=== PATIENT | female | born 1995 | race Caucasian/White ===

== ENCOUNTER 2016-11-06 20:25 | Emergency (ER) | payer OTHER ==
[2016-11-06] MEDS ORDERED: KETOROLAC 60 MG/2 ML VIAL ONE (20:28)
[2016-11-06 20:40] VITALS: BP 126/59
--- NOTE | 2016-11-06 21:13 | XRAY Preliminary Report ---
Exam: XR Chest 2 View PA/LAT IMPRESSION: No acute findings are seen. [facility] SITE ID: [id number]
--- NOTE | 2016-11-06 21:15 | XRAY Report ---
EXAM: CHEST RADIOGRAPHY EXAM DATE: 11/06/2016 08:55 PM. CLINICAL HISTORY: Trauma, right rib pain. Fall from ladder approximately 3 feet. Right posterior uppe r rib pain. COMPARISON: None. TECHNIQUE: 2 views. FINDINGS: Lungs/Pleura: No focal opacities evident. No pleural effusion. No pneumothorax. Normal volumes. Mediastinum: Heart and mediastinal contours are unremarkable. Other: No evidence for acute fracture. IMPRESSION: No acute findings are seen. [facility] Referring Provider Line: [phone] SITE ID: [id number]
--- NOTE | 2016-11-06 21:15 | XRAY Preliminary Report ---
Exam: XR Wrist 3 View LT IMPRESSION: No acute findings. [facility] SITE ID: [id number]
--- NOTE | 2016-11-06 21:17 | XRAY Report ---
EXAM: LEFT WRIST RADIOGRAPHY EXAM DATE: 11/06/2016 08:55 PM. CLINICAL HISTORY: Trauma, left wrist pain. COMPARISON: None. TECHNIQUE: 3 views. FINDINGS: Bones: Chronic nonunion avulsion fracture of the ulnar styloid versus unfused ossicle. Suspect chroni c healed left distal radial diaphyseal fracture deformity. No evidence for acute fracture. Joints: Normal. No subluxations. Soft Tissues: Normal. No soft tissue swelling. IMPRESSION: No acute findings. [facility] Referring Provider Line: [phone] SITE ID: [id number]
--- NOTE | 2016-11-06 21:30 | ED Physician Documentation ---
PD HPI Fall - Stated complaint Stated Complaint: FALL/WRIST PN - Chief complaint Chief Complaint: Trauma Ch/Bk - History obtained from History obtained from: Patient, EMS - History of Present Illness Mechanism of injury: Slipped Fall distance: Less than 5ft Where injury occurred: Work Timing - onset: How many hours ago (2) Injury(ies) location: Chest, Left Uppper Extremity Quality of pain: Pain Associated symptoms: No: LOC, AMS, Amnesia, Seizures, Neck pain, Weakness, Paresthesias Symptoms improve with: Ice, Position Worsens with: Movement, Palpation Similar symptoms before: Has not had sx before Recently seen: Not recently seen - Additional information Additional information: Patient is a 21 year old female with no significant past medical history who is presenting to the emergency department for side and wrist pain. 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 Patient eventually lost balance and fell back landing on her side and hitting her wrist. Patient denies any loc , head pain or neck pain. Review of Systems Constitutional: denies: Fever, Chills Eyes: denies: Loss of vision, Photophobia Ears: denies: Ear pain, Drainage/discharge Nose: denies: Epistaxis Throat: denies: Dental pain / toothache Cardiac: denies: Chest pain / pressure Respiratory: denies: Cough, Wheezing GI: denies: Nausea, Vomiting Skin: denies: Abrasion (s), Laceration (s) Musculoskeletal: reports: Back pain, Extremity pain Neurologic: denies: Generalized weakness, Focal weakness, Numbness Immunocompromised: denies: Immunocompromised PD PAST MEDICAL HISTORY - Past Medical History Past Medical History: No - Past Surgical History Past Surgical History: No - Present Medications Home Medications: Ambulatory Orders Medication Instructions Recorded Confirmed No Known Home Medications [No 11/06/16 11/06/16 Known Home Medications] - Allergies Allergies/Adverse Reactions: Allergies Allergy/AdvReac Type Severity Reaction Status Date / Time No Known Drug Allergies Allergy Verified 11/06/16 20:33 - Social History Does the pt smoke?: No Smoking Status: Never smoker Does the pt drink ETOH?: No Does the pt have substance abuse?: No - Immunizations Immunizations are current?: Yes - POLST Patient has POLST: No PD ED PE NORMAL - Vitals Vital signs reviewed: Yes - General General: Alert and oriented X 3, No acute distress - HEENT HEENT: Atraumatic, PERRL - Neck Neck: Supple, no meningeal sign - Cardiac Cardiac: RRR, No murmur - Respiratory Respiratory: No respiratory distress - Abdomen Abdomen: Soft, Non tender, Non distended - Derm Derm: Normal color, Warm and dry - Neuro Neuro: Alert and oriented X 3, No motor deficit, No sensory deficit, Normal speech - Psych Psych: Normal mood, Normal affect PD ED PE EXPANDED - Back Back: Other (tenderness to palpation over right lateral ribs) - Extremities Extremities: Left wrist (tenderness to palpation of left wrist) Results - Vitals Vitals: Vital Signs - 24 hr 11/06/16 20:27 Temperature 36.2 C L Heart Rate 81 Respiratory 16 Rate Blood Pressure 126/59 L O2 Saturation 100 Oxygen O2 Source Room air - Rads (name of study) chest x-ray Radiology: Final report received (no acute fracture or dislocation) wrist x-ray Radiology: Final report received (no acute fracture or dislocation) PD MEDICAL DECISION MAKING - ED course Complexity details: reviewed old records, reviewed results, re-evaluated patient , considered differential, d/w patient ED course: Patient was seen and examined at bedside. patient was then sent for imaging. when patient returned the results were reviewed. there was no acute fracture or dislocation. patient required no further work up and was stable for discharge with outpatient follow up. Departure - Departure Disposition: 01 Home, Self Care Clinical Impression: Contusion of chest wall Condition: Good Instructions: ED Contusion Chest Wall Follow-Up: primary,care provider [Other] - As Needed Comments: Your diagnostics today were within normal limits. You can take motrin or tylenol as needed for pain. You apply ice to the areas that are painful. You should make sure that you continue to take deep breaths. You should return to the emergency department for fevers, chills, shortness of breath, new, worsening or uncontrollable symptoms. Discharge Date/Time: 11/06/16 21:40
== END 2016-11-06 21:40 | disposition home or self-care (01) ==
LOC: ED 20:25
DX: S20.219A Contusion of unspecified front wall of thorax, initial encounter (principal); W01.0XXA Fall on same level from slipping, tripping and stumbling without subsequent striking against object, initial encounter; Y93.89 Activity, other specified; Y99.0 Civilian activity done for income or pay
CPT/HCPCS: 71020; 99283

== ENCOUNTER 2016-11-22 02:09 | Emergency (ER) | payer OTHER ==
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
[2016-11-22 04:04] VITALS: BP 120/60
== END 2016-11-22 04:04 | disposition home or self-care (01) ==
LOC: ED 02:09
DX: Z71.1 Person with feared health complaint in whom no diagnosis is made (principal); W10.8XXA Fall (on) (from) other stairs and steps, initial encounter; Y92.89 Other specified places as the place of occurrence of the external cause; Y99.1 Military activity
CPT/HCPCS: 99283

== ENCOUNTER 2018-08-17 20:29 | Emergency (ER) | payer OTHER ==
[2018-08-17 20:45] VITALS: BP 143/82
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
== END 2018-08-17 21:25 | disposition home or self-care (01) ==
LOC: ED 20:29
DX: S13.4XXA Sprain of ligaments of cervical spine, initial encounter (principal); V43.52XA Car driver injured in collision with other type car in traffic accident, initial encounter; Y92.410 Unspecified street and highway as the place of occurrence of the external cause
CPT/HCPCS: 99282; 99283

== ENCOUNTER 2022-02-19 11:28 | Outpatient (CLI) | payer OTHER ==
--- NOTE | 2022-02-19 13:01 | XRAY Report ---
PROCEDURE: Ankle 3 View RT INDICATIONS: RIGHT ANKLE PAIN TECHNIQUE: 3 views of the ankle were acquired. COMPARISON: Right ankle radiographs 02/03/2022. FINDINGS: Bones: No fractures or dislocations. Ankle mortise is normally aligned. No suspicious bony lesions . Pes planus alignment present. Soft tissues: No tibiotalar joint effusion. Achilles tendon appears normal. IMPRESSION: No acute osseous abnormality. If symptoms persist, follow-up radiographs and/or CT or MR I may be helpful for further evaluation. Reviewed by: Nas Cooley MD on 02/19/2022 1:00 PM [facility] Approved by: Nas Cooley MD on 02/19/2022 1:00 PM [facility] Station ID: [id number]
== END 2022-02-19 11:29 | disposition home or self-care (01) ==
LOC: DI.WOS 11:28
PROVIDERS: ATTEND Orthopaedic Surgery
DX: M25.571 Pain in right ankle and joints of right foot (principal)

== ENCOUNTER 2022-03-26 08:00 | Outpatient (CLI) | payer OTHER ==
--- NOTE | 2022-03-26 14:55 | XRAY Report ---
PROCEDURE: Ankle 3 View RT INDICATIONS: RIGHT ANKLE FRACTURE TECHNIQUE: 3 views of the ankle were acquired. COMPARISON: Right ankle radiographs 02/19/2022 FINDINGS: Bones: No acute fractures or dislocations. Ankle mortise is normally aligned. No suspicious bony l esions. Pes planus alignment is noted. Soft tissues: No suspicious soft tissue calcification. IMPRESSION: 1.Pes planus. 2.No acute or healing osseous fracture identified in the ankle. If symptoms persist or there is crystal nued clinical concern, further evaluation with MRI or CT may be helpful. Reviewed by: Nas Hill MD on 03/26/2022 2:53 PM PST Approved by: Nas Hill MD on 03/26/2022 2:53 PM PST Station ID: [id number]
== END 2022-03-26 23:59 | disposition home or self-care (01) ==
LOC: DI.WOS 08:00
PROVIDERS: ATTEND Orthopaedic Surgery
DX: S82.64XA Nondisplaced fracture of lateral malleolus of right fibula, initial encounter for closed fracture (principal); M21.41 Flat foot [pes planus] (acquired), right foot

== ENCOUNTER 2022-12-24 07:01 | Day surgery (SDC) | payer OTHER ==
[2022-12-24] MEDS ORDERED: LACTATED RINGERS 1,000 ML IV ONE ×2 (07:17→09:23)
[2022-12-24] MEDS ORDERED: MORPHINE 2 MG/ML CARPUJECT IVP PRN (07:27)
[2022-12-24] MEDS ORDERED: fentaNYL 100 MCG/2 ML VIAL IVP PRN (07:27)
[2022-12-24] MEDS ORDERED: NALOXONE 0.4 MG/ML VIAL IVP PRN (07:27)
[2022-12-24] MEDS ORDERED: ONDANSETRON 4 MG/2 ML VIAL IVP PRN (07:27)
[2022-12-24] MEDS ORDERED: ePHEDrine 50 MG/ML VIAL IVP PRN (07:27)
[2022-12-24] MEDS ORDERED: HYDROmorphone 0.5 MG/0.5 ML SYRINGE IVP PRN (07:27)
[2022-12-24] MEDS ORDERED: ATROPINE ABBOJECT 1 MG/10 ML SYRINGE IVP PRN (07:27)
--- NOTE | 2022-12-24 07:27 | ANESTHESIA ---
Pre-Anesthesia VS, & Labs - Diagnosis desires sterilization - Procedure laparoscopic bilateral salphingectomy Height: 5 ft 7 in - NPO >8 hours - Is Patient ?: No - Lab Results Fish Bones: 12/24/22 07:28 Home Medications and Allergies Home Medications: Ambulatory Orders Sertraline HCl 100 mg PO DAILY 12/23/22 buPROPion [Wellbutrin Xl] 150 mg PO DAILY 12/23/22 valACYclovir [Valtrex] 500 mg PO DAILY 12/23/22 Sertraline HCl 100 mg PO DAILY 12/23/22 buPROPion [Wellbutrin Xl] 150 mg PO DAILY 12/23/22 valACYclovir [Valtrex] 500 mg PO DAILY 12/23/22 Allergies/Adverse Reactions: Allergies Allergy/AdvReac Type Severity Reaction Status Date / Time No Known Drug Allergies Allergy Verified 12/24/22 07:37 Anes History & Medical History - Anesthetic History Anesthesia Complications: reports: No previous complications - Medical History Cardiovascular: reports: None Pulmonary: reports: None Gastrointestinal: reports: Other Urinary: reports: None Musculoskeletal: reports: None Endocrine/Autoimmune: reports: None Skin: reports: None Smoking Status: Never smoker Psychosocial: reports: Other (ADHD) History of Cancer?: No Other Past Medical History: chronic hearing loss - Surgical History Orthopedic: reports: Other (CR of wrist) Exam General: Alert, Oriented x3 Dental: WNL, Other (permenant retainer) Mouth Opening: Greater than 4 Fingerbreadths Neck Mobility: Normal Mallampati classification: I Thyromental Distance: greater than 6 cm Respiratory: Lungs clear Cardiovascular: Regular rate Plan Anesthesia Type: General Consent for Procedure(s) Verified and Reviewed: Yes Code Status: Attempt Resuscitation ASA classification: 2-Mild systemic disease Is this case an emergency?: No
[2022-12-24] MEDS ORDERED: BUPIVACAINE 0.5% PF 10 ML VIAL ONE (07:29)
[2022-12-24] MEDS ORDERED: LIDOCAINE 1%-EPI 1:100000 20 ML MDV ONE (07:29)
[2022-12-24] MEDS ORDERED: SILVER NITRATE APPLICATOR TOP ONE (07:32)
--- NOTE | 2022-12-24 07:39 | HISTORY & PHYSICAL EXAMINATION ---
History and Physical - History and Physical HPI: Patient is a 27-year-old G0 presenting today for laparoscopic bilateral salpingectomy and IUD removal. She is certain that she is not interested in having children and has had the same discussion for several years. She continues to affirm that she does not desire children and her lifestyle does not admit itself to this. She would also like her Mirena removed as she thinks that hormones have been affecting her mood. All other symptoms reviewed and were negative except per HPI. 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 Alcohol occasionally in moderation Family History No significant family history that the patient is aware of Allergies No known drug allergies Medications Valacyclovir 500 mg daily Sertraline 100 mg daily Mirena Physical exam: Temp Pulse Resp BP Pulse Ox O2 Flow Rate 97.2 F L 76 14 115/45 L 98 0 12/24/22 07:12/24/22 07:17 12/24/22 07:17 12/24/22 07:17 12/24/22 07:12/24/22 07:17 General: Alert, oriented, no acute distress Head: Normal cephalic atraumatic Eyes: PERRLA, extraocular motions intact. Respiratory: Normal rate of respiration. No accessory muscle use, normal respiratory effort. Cardiovascular: Regular rate and rhythm Abdomen: Nontender, nondistended Extremities: Normal range of motion Neuro: Oriented x3. Normal movements Psych: Appropriate mood and affect. Normal judgment and insight Plan 27-year-old G0 here for planned laparoscopic bilateral salpingectomy and IUD removal. 1. Sterility counseling: She desires a tubal ligation. We discussed the risks, alternatives, benefits to this. We discussed long-acting control such as IUDs and implants. She has tried various methods of control including LARC and do not sit well with her. We had discussion about partner vasectomy and the pros and cons to this including a smaller surgery, and easier recovery, however she denies this is an option. We discussed the general risk of surgery including infection, bleeding, damage to other organs, needing a larger incision. Specific to tubal ligation, we discussed the risk of regret, and discussed that regret is greater in those under 30, without children, and not in stable relationships. Patient says she is confident in her decision to not have any more children. We also discussed the risk of failure, and that less than 1/100 tubal ligation fail, but if it did, she would be at increased risk of ectopic . Patient desires to proceed with bilateral tubal ligation. Plan for laparoscopic bilateral salpingectomy and discussed the risk, benefits, alternatives to laparoscopic surgery. Patient agrees and would like to proceed with surgery 2. Contraceptive management: Patient desires IUD removal at time of surgery. Consents to procedure and would like to proceed.
[2022-12-24 07:51] LABS: BASOPHILS # (AUTO) 0.1 10^3/uL (0.0-0.1); BASOPHILS % (AUTO) 0.4 %; EOSINOPHILS # (AUTO) 0.2 10^3/uL (0.0-0.7); EOSINOPHILS % (AUTO) 1.7 %; HGB - HEMOGLOBIN 13.1 g/dL (12.0-16.0); LYMPHOCYTES # (AUTO) 4.1 10^3/uL (1.5-3.5); LYMPHOCYTES % (AUTO) 34.8 %; MEAN CORPUSCULAR HEMOGLOBIN 28.4 pg (27.0-31.0); MEAN CORPUSCULAR VOLUME 88.7 fL (81.0-99.0); MEAN PLATELET VOLUME 10.1 fL (7.9-10.8); MONOCYTES # (AUTO) 0.7 10^3/uL (0.0-1.0); NEUTROPHILS # (AUTO) 6.7 10^3/uL (1.5-6.6); NEUTROPHILS % (AUTO) 56.7 %; PLT - PLATELET COUNT 280 10^3/uL (130-450); RED BLOOD COUNT 4.62 10^6/uL (4.20-5.40); RED CELL DISTRIBUTION WIDTH 12.8 % (12.0-15.0); WHITE BLOOD COUNT 11.7 x10^3/uL (4.8-10.8)
[2022-12-24 07:53] LABS: HCG UR QUAL NEGATIVE
[2022-12-24] MEDS ORDERED: PROPOFOL 200 MG/20 ML VIAL IVP ONE (07:57)
[2022-12-24] MEDS ORDERED: ROCURONIUM 50 MG/5 ML VIAL ONE ×2 (07:57→08:47)
[2022-12-24] MEDS ORDERED: fentaNYL 100 MCG/2 ML VIAL ONE ×2 (07:57→09:17)
[2022-12-24] MEDS ORDERED: MIDAZOLAM 2 MG/2 ML VIAL ONE (07:57)
[2022-12-24] MEDS ORDERED: LACTATED RINGERS 1,000 ML IV SCH (08:00)
[2022-12-24] MEDS ORDERED: LIDOCAINE MPF 1%-EPI 1:200000 30 ML VIAL SUBQ ONE ×2 (08:00)
[2022-12-24] MEDS ORDERED: BUPIVACAINE 0.5% PF 30 ML VIAL INFIL ONE ×2 (08:00)
[2022-12-24] MEDS ORDERED: DEXAMETHASONE 4 MG/ML VIAL ONE (08:25)
[2022-12-24] MEDS ORDERED: ONDANSETRON 4 MG/2 ML VIAL ONE (08:25)
[2022-12-24] MEDS ORDERED: HYDROmorphone 1 MG/ML CARPUJECT ONE (08:55)
[2022-12-24] MEDS ORDERED: SUGAMMADEX 200 MG/2 ML VIAL IVP ONE (09:06)
[2022-12-24] MEDS ORDERED: KETOROLAC 30 MG/ML VIAL ONE (09:06)
--- NOTE | 2022-12-24 09:10 | OPERATIVE REPORT ---
Operative Report - General Procedure Date: 12/24/22 Planned Procedure: Laparoscopic bilateral salpingectomy and IUD removal Pre-Op Diagnosis: Desires permanent sterility Procedure Performed: Laparoscopic bilateral salpingectomy and IUD removal Post Op Diagnosis: Desires permanent sterility - Procedure Note Primary Surgeon: Prasanth El MD Secondary Surgeon: ANNEL Toledo Anesthesia Provider: Greta Gustafson CRNA Anesthesia Technique: General ET tube Pathology: Bilateral fallopian tubes Estimated Blood Loss (mL): 15 Urine Output (mL): 0 (Voided prior to surgery) Complications: None - Other Other Information/Narrative: Prior to surgery, we discussed the risks, alternatives, benefits to tubal ligation. We discussed long-acting control such as IUDs and implants. We had discussion about partner vasectomy and the pros and cons to this including a smaller surgery, and easier recovery. We discussed the general risk of surgery including infection, bleeding, damage to other organs, needing a larger incision. Specific to tubal ligation, we discussed the risk of regret, and discussed that regret is greater in those under 30, without children, and not in stable relationships. Patient says she is confident in her decision to not have any more children. We also discussed the risk of failure, and that less than 1/100 tubal ligation fail, but if it did, she would be at increased risk of ectopic . Patient desires to proceed with bilateral tubal ligation. Patient was taken to the OR and placed in the dorsal lithotomy position using Yellofin stirrups after adequate anesthesia was obtained. Patient was prepped and draped in the usual fashion. A bivalve speculum was used to visualize the cervix and using a ring forcep, the IUD strings were grasped and easily removed from the cervix. A uterine manipulator was then placed. Using local anesthesia, a wheal of local anesthesia was placed below the umbilicus, and an 11 blade scalpel was used to incise the skin. Direct visual entry was used to place the infraumbilical trocar. Upon entering the peritoneal cavity, low flow was used to ensure appropriate positioning. Upon visualization of the abdominal cavity, high flow was then initiated. 2 additional trocars was placed under visualization in a similar fashion in the right and left lower quadrants. After visualization of the left fallopian tube, it was grasped with an atraumatic grasper. The mesosalpinx was cauterized and cut with a Ligasure device. There was a small amount of bleeding at the cornua, this was coagulated and hemostasis was noted. Attention was then turned to the right fallopian tube which was then removed in a similar fashion. The abdomen was reviewed for hemostasis, and a healthy-appearing liver was noted. The trocars were then removed, and abdomen was evacuated of gas. The trocar sites were then closed with a 4-0 Monocryl in a sub-cuticular fashion and covered with Dermabond. Patient was taken to the PACU in stable condition. I appreciate the assistance of ANNEL Toledo during this procedure, and the assistance in retraction, visualization, dissection, and overall assistance during the case were instrumental to the patient's wellbeing.
[2022-12-24 09:59] VITALS: O2SAT 98
[2022-12-24] MEDS ORDERED: HYDROcod/ACETAM 5/325 MG TABLET PO ONE (10:10)
[2022-12-24] MEDS ORDERED: HYDROcod/ACETAM 5/325 MG TABLET ONE (10:20)
[2022-12-24 10:28] VITALS: BP 112/55
[2022-12-24] MEDS ORDERED: ONDANSETRON ODT 4 MG TABLET TL ONE (10:52)
[2022-12-24] MEDS ORDERED: ONDANSETRON ODT 4 MG TABLET ONE (11:04)
--- NOTE | 2022-12-24 15:14 | ANESTHESIA POST OP EVALUATION ---
Anesthesia Post Eval - Post Anesthesia Eval Vitals: Last Vital Signs Temp 36.2 C L 12/24/22 09:48 Pulse 89 12/24/22 10:20 Resp 16 12/24/22 10:20 BP 112/55 L 12/24/22 10:20 Pulse Ox 98 12/24/22 10:20 O2 Flow Rate 0 12/24/22 07:17 CV Function Including HR & BP: Stable Pain Control: Satisfactory Nausea & Vomiting: Negative Mental Status: Baseline Respiratory Status: Airway Patent Hydration Status: Satisfactory Anesthesia Complications: None
== END 2022-12-24 07:02 | disposition home or self-care (01) ==
LOC: SDS 07:01
PROVIDERS: ATTEND Obstetrics & Gynecology
PROC: 0UB74ZZ Excision of Bilateral Fallopian Tubes, Percutaneous Endoscopic Approach (ICD-10-PCS; principal; 2022-12-24 08:30)
DX: Z30.2 Encounter for sterilization (principal); Z30.432 Encounter for removal of intrauterine contraceptive device; Z32.02 Encounter for pregnancy test, result negative
CPT/HCPCS: 36415; 58301; 58661; 81025; 85025; A9270; J1170; J7120

== ENCOUNTER 2023-08-20 08:00 | Outpatient (CLI) | payer OTHER ==
[2023-08-20 23:30] LABS: CHLAMYDIA TRACHOMATIS DNA NEGATIVE (NEGATIVE); NEISSERIA GONORRHOEAE DNA NEGATIVE (NEGATIVE); TRICHOMONAS VAGINALIS DNA NEGATIVE (NEGATIVE)
[2023-08-22 08:11] LABS: HIV SCREEN 4TH GENERATION Non Reactive (Non Reactive); HSV 1 IGG TYPE SPEC <0.91 index (0.00-0.90); HSV 2 IGG TYPE SPEC 2.51 index (0.00-0.90)
[2023-08-22 09:10] LABS: RPR Non Reactive (Non Reactive)
== END 2023-08-20 23:59 | disposition home or self-care (01) ==
LOC: LAB.N 08:00
PROVIDERS: ATTEND Physician Assistant Medical
DX: Z11.3 Encounter for screening for infections with a predominantly sexual mode of transmission (principal)
CPT/HCPCS: 86592; 86695; 86696; 86803; 87389; 87491; 87591; 87661